=== PATIENT | female | born 1945 ===

== ENCOUNTER → 2016-06-24 | Day surgery (SDC) | payer MEDICARE, BC ==
[~2016-06-24] VITALS: Ht 162.6 cm; Wt 67.3 kg
[~2016-06-24] MED LIST: AZOPT 1% OPHTH; BIOTIN5000 MCG PO; CALAN SR GENER240 MG PO; CALCIUM 600 +1 EA12 PO; COLACE100 MG PO; COZAAR100 MG PO; ELAVIL25 MG PO; KEFLEX500 MG PO; LEVOTHROID (SY50 MCG PO; LEVOTHROID (SY50 MCG SL; LOPID600 MG PO; LOSARTAN POTASS50 MG PO; LUMIGAN 0.01%2.5 ML OPHTH; NASACORT16.9 ML NOSE; NORCO 5-325 TA1 EACH PO; PRILOSEC20 MG PO; PROVENTIL OR V6.7 GM INH; PULMICORT FLE180 MCG INH; ROSADAN45 G1 TOP; THERAGRAN-M1 TAB PO
== END | disposition disaster alternative care site (69) ==
LOC: GPOC 05-31 11:00 → GEND 07:51
PROC: 0DB68ZX Excision of Stomach, Via Natural or Artificial Opening Endoscopic, Diagnostic (ICD-10-PCS; principal; 2016-06-24)
DX: K29.50 Unspecified chronic gastritis without bleeding (principal); K31.89 Other diseases of stomach and duodenum; E78.5 Hyperlipidemia, unspecified; I10 Essential (primary) hypertension; J45.909 Unspecified asthma, uncomplicated; K21.9 Gastro-esophageal reflux disease without esophagitis
CPT/HCPCS: J7030

== ENCOUNTER → 2016-07-13 | Day surgery (SDC) | payer MEDICARE, BC ==
[~2016-07-13] VITALS: Ht 162.6 cm; Wt 64.7 kg
--- NOTE | ~2016-07-13 | OR ---
PATIENT'S NAME: ROLANDO AVILA [facility] AGE: 70 Y [address] ROOM: [place] [address] [place] [facility] [place]: 07/13/2016 OR/Procedure Report DISCHARGE DATE: FAMILY PHYSICIAN: Zayra Sanchez ATTENDING PHYSICIAN: Mian Chacko SURGEON: Mian Chacko DO CERTIFIED GENETIC COUNSELOR: Staff. DATE OF PROCEDURE: 07/13/2016 PREOPERATIVE DIAGNOSES: 1. Right recurrent cubital tunnel syndrome. 2. Right index trigger finger. POSTOPERATIVE DIAGNOSES: 1. Right recurrent cubital tunnel syndrome. 2. Right index trigger finger. PROCEDURE PERFORMED: 1. Right ulnar neuroplasty in situ at the elbow with medial epicondylectomy. 2. Right index finger A1 juarez release. ANESTHESIA: General plus regional. ESTIMATED BLOOD LOSS: Less than 20 mL. TOURNIQUET TIME: Less than 30 minutes at 250 mmHg. COMPLICATIONS: None. DISPOSITION: Stable to recovery room. JUSTIFICATION FOR PROCEDURE: Rolando Avila is a 70-year-old female with a history of worsening numbness, tingling, and pain in the ulnar distribution of the right upper extremity. She has had a previous cubital tunnel release with neuroplasty in situ and initially did well, but then had recurrence of her symptoms. Since that time, she has also had beginning trigger finger on the index finger. She failed conservative treatment measures for both of these. She was counseled as to treatment options, risks versus benefits, and necessary afterward care. She gave informed consent to proceed with a right ulnar neuroplasty at the elbow, possible amniotic membrane wrap to the ulnar nerve, right index finger A1 juarez release, and any indicated procedures. PROCEDURE IN DETAIL: The patient was properly identified, both verbally and by name tag. She was taken to the operating suite, placed on the operating table in the supine position. The anesthesiologist administered a regional PATIENT'S NAME: ROLANDO AVILA [facility] AGE: 70 Y [address] ROOM: [place] [address] [place] [facility] [place]: 07/13/2016 OR/Procedure Report DISCHARGE DATE: FAMILY PHYSICIAN: Zayra Sanchez ATTENDING PHYSICIAN: Mian Chacko anesthetic in the right upper extremity and general anesthesia. Once adequate anesthesia was obtained, the right upper extremity was prepped and draped in the usual sterile fashion. The extremity was exsanguinated with an Esmarch bandage, and the tourniquet was inflated to the level of the arm to 250 mmHg. Attention was first turned to the palm. A #15 blade knife was used to make an oblique incision in the palm overlying the A1 juarez to the right index finger. Under loupe magnification, careful blunt dissection was carried down through the superficial to the deep fascia. Within the superficial fascia, the neurovascular bundles to the index finger were each identified, carefully retracted to their respective sides, and protected. The A1 juarez was isolated and sharply incised. The A2 juarez was preserved. The flexor mechanism was gently withdrawn into the wound with an atraumatic retractor and inspected. There was mild tendinosis on the sublimis, no tendinosis on the profundus, and there were no space-filling lesions within the sheath. There was no bowstringing of the flexor mechanism distally. The index finger was placed through a range of motion while visualizing tendon excursion. There was no bunching, gathering, or kinking of the tendons and no further triggering. The wound was copiously irrigated with saline. It was temporarily covered with sterile saline-soaked gauze and attention was turned to the medial elbow. A #15 blade knife was used to make a curvilinear incision centered around the medial epicondyle at the right elbow. The patient's old surgical incision was re-opened sharply with #15 blade knife. It was extended slightly proximally and distally to gain better visualization through previously on the operated tissue planes. Under loupe magnification, careful blunt dissection was carried down through the superficial to the deep fascia. Crossing branches of the medial and brachial cutaneous nerves were identified and carefully protected throughout the procedure. The ulnar nerve was identified proximally and was freed up in a proximal direction beyond the level of the previous arcade of [place]. There was really no evidence of entrapment or compression of the nerve proximally, and there was no significant scarring into the nerve itself. The intermuscular septum had previously been partially resected, and there was no evidence of this or regrowing or becoming an issue with nerve entrapment. The ulnar nerve was freed up from proximal to distal through the cubital tunnel and out into the flexor pronator muscle group. There was really no scarring into the nerve itself, but there were some tight bands of scar tissue at the trailing edge of the cubital tunnel which were tethering the nerve at this point. The nerve was slightly hypermobile through the region of the previous cubital tunnel release and after releasing the tight fascial bands distally, the nerve could now be subluxated over the medial epicondyle. The decision was made to address this by performing a medial epicondylectomy. Care was taken to release the nerve distally greater than 8 cm distal to the medial epicondyle and also in a proximal direction. PATIENT'S NAME: ROLANDO AVILA [facility] AGE: 70 Y [address] ROOM: [place] [address] [place] [facility] [place]: 07/13/2016 OR/Procedure Report DISCHARGE DATE: FAMILY PHYSICIAN: Zayra Sanchez ATTENDING PHYSICIAN: Mian Chacko Care was taken to identify and protect the first motor branch and subsequent motor branches. The ulnar nerve was then protected, and a fresh #15 blade knife was used to make a longitudinal incision over the medial epicondyle. Subperiosteal dissection was used to clear off the medial epicondyle to a depth of about 1 cm. The medial epicondyle itself was then removed piecemeal with rongeurs. The bone bed was rasped smooth. The wound was copiously irrigated with saline. Care was taken to avoid dissection too far anteriorly and distally in order to avoid injury to the medial collateral ligament complex. The bone bed was covered with a small amount of sterile bone wax for hemostasis purposes. The fascial sleeve created by the subperiosteal dissection was then repaired in a eabk-ja-jece fashion with 3-0 Vicryl suture in an interrupted gscbqv-ga-eadhj fashion burying the knots. The ulnar nerve was once again visualized while placing the elbow through a range of motion. It now glided smoothly through its course. It did not bunch, gather, kink, snap, or subluxate. Careful visualization and probing greater than 8 cm proximal and distal to the medial epicondyle revealed no further areas of entrapment or compression. The nerve glided smoothly and did not subluxate or snap. The wound was copiously irrigated with saline. Tourniquet was let down after less than 30 minutes. John capillary refill was noted distally. There was no arterial bleeding noted. Hemostasis was obtained with minimal use of bipolar electrocautery and direct pressure. The incision at the elbow was closed with 4-0 undyed Vicryl to the subcu fascia and 5-0 nylon suture in an interrupted mattress stitch fashion to the skin. The palm incision was closed with 5-0 nylon suture in an interrupted mattress stitch fashion to the skin. A sterile bulky bundle dressing was applied. The patient was aroused from general anesthesia, extubated by the anesthesiologist, and taken to the recovery room in good condition. Immediate postoperative examination in the recovery room showed good capillary refill distally in all 5 digits. Light touch sensation and motor function distally were equivocal due to persistence of the regional blockade. DO MILE DAVIDSON/raman /[id number] d: 07/19/16 0257 t: 07/22/16 0809, OPERATIVE SUMMARY
== END | disposition disaster alternative care site (69) ==
LOC: GPOC 07-07 11:00 → GSDC 12:27
PROC: 0LN70ZZ Release Right Hand Tendon, Open Approach (ICD-10-PCS; principal; 2016-07-13)
PROC: 01S40ZZ Reposition Ulnar Nerve, Open Approach (ICD-10-PCS; 2016-07-13)
DX: G56.21 Lesion of ulnar nerve, right upper limb (principal); M65.321 Trigger finger, right index finger; J45.909 Unspecified asthma, uncomplicated; F32.9 Major depressive disorder, single episode, unspecified; I34.1 Nonrheumatic mitral (valve) prolapse; F41.9 Anxiety disorder, unspecified; E89.0 Postprocedural hypothyroidism; I10 Essential (primary) hypertension; E78.5 Hyperlipidemia, unspecified; Z88.2 Allergy status to sulfonamides; Z88.5 Allergy status to narcotic agent; Z88.8 Allergy status to other drugs, medicaments and biological substances; Z79.899 Other long term (current) drug therapy; Z90.49 Acquired absence of other specified parts of digestive tract; Z98.890 Other specified postprocedural states
CPT/HCPCS: J0690; J1100; J2250; J2405; J7120